=== PATIENT | female | born 1980 | race Caucasian/White ===

== ENCOUNTER 2016-12-14 15:53 | Inpatient (IN) | END 2016-12-17 16:42 | disposition home or self-care (01) | DRG 775 | DX: O24.429 Gestational diabetes mellitus in childbirth, unspecified control (principal); Z37.0 Single live birth; O14.94 Unspecified pre-eclampsia, complicating childbirth; Z3A.39 39 weeks gestation of pregnancy ==

== ENCOUNTER 2018-04-13 05:54 | Day surgery (SDC) | payer OTHER ==
[~2018-04-13] VITALS: Ht 154.9 cm; Wt 68.8 kg
[2018-04-13] VITALS (14 sets, daily range): BP systolic 134–148; BP diastolic 65–83; PULSE 66–78; RESP 14–23; Ht 154.9 cm; Wt 68.8 kg
[2018-04-13] MEDS ORDERED: SEVOFLURANE 15 MIN ONE (07:00)
[2018-04-13] MEDS ORDERED: BUPIVACAINE 0.5%/EPI (SDV) 30 ML INJ ONE (07:12)
--- NOTE | 2018-04-13 07:22 | PREAC ---
Date/Time of Note Date/Time of Note DATE: 04/13/18 TIME: 07:21 Anesthesia Eval and Record Evaluation Time Pre-Procedure Interview DATE: 04/13/18 TIME: 07:21 Age 37 Sex female NPO: 8 hrs Preoperative diagnosis desired sterilization Planned procedure laparoscopic bilateral tubal ligation Past Medical History Past Medical History: None Surgery & Anesthesia Issues No known issue Meds Anticoagulation: No Beta Randa within 24 hr: No Reason Beta Randa not given: Pt. not on B-Randa No Active Prescriptions or Reported Meds Meds reviewed: Yes Allergies Coded Allergies: No Known Allergy (Unverified , 04/13/18) Allergies Reviewed: Yes Labs/Studies Labs Reviewed: Reviewed by anesthesiologist test: Negative Pre-procedure Exam Last vitals Vital Signs Date Temp Pulse Resp B/P (MAP) Pulse Ox O2 O2 Flow FiO2 Time Delivery Rate 04/13/18 98.5 72 18 148/82 99 06:00 (104) Airway: Adequate mouth opening, Adequate thyromental dist Mallampati: Mallampati II Teeth: Normal Lung: Normal Heart: Normal ASA Physical Status ASA physical status: 1 Emergency: None Planned Anesthetic General/MAC: ETT Planned Pain Management Parenteral pain med Pre-operative Attestations Prior to commencing anesthesia and surgery, the patient was re-evaluated, there was verification of: *The patient's identity *The results of appropriate recent lab work and preoperative vital signs *The above evaluation not changing prior to induction *Anesthetic plan, risk benefits, alternative and complications discussed with patient/family; questions answered; patient/family understands, accepts and wishes to proceed. BENSON DIAZ MD Apr 13, 2018 07:22
[2018-04-13] MEDS ORDERED: DIPHENHYDRAMINE 50 MG INJ IV PRN (07:30)
[2018-04-13] MEDS ORDERED: FENTAnyl 50 MCG/ML VIAL IV PRN ×3 (07:30)
[2018-04-13] MEDS ORDERED: MEPERIDINE 25 MG INJ IV PRN (07:30)
[2018-04-13] MEDS ORDERED: HYDROmorphONE 1 MG/5 ML IV SYRINGE IV PRN ×3 (07:30)
[2018-04-13] MEDS ORDERED: PROCHLORPERAZINE 10 MG INJ IV PRN (07:30)
[2018-04-13] MEDS ORDERED: ONDANSETRON 4 MG INJ IV PRN (07:30)
[2018-04-13] MEDS ORDERED: OXYCODONE/ACETAMINOPHEN (5/325) TAB PO PRN (07:30)
[2018-04-13] MEDS ORDERED: PROPOFOL 20 ML ONE (07:34)
[2018-04-13] MEDS ORDERED: MIDAZOLAM 1 MG/ML 2 ML INJ ONE (07:34)
[2018-04-13] MEDS ORDERED: LIDOCAINE 2% (SDV) 5 ML INJ ONE (07:34)
[2018-04-13] MEDS ORDERED: FENTAnyl 50 MCG/ML VIAL ONE (07:41)
[2018-04-13] MEDS ORDERED: CEFAZOLIN 1 GM INJ ONE (07:56)
[2018-04-13] MEDS ORDERED: DEXAMETHASONE 4 MG/ML 5 ML INJ ONE (07:56)
[2018-04-13] MEDS ORDERED: ROCURONIUM 50 MG INJ ONE (07:56)
[2018-04-13] MEDS ORDERED: SUCCINYLCHOLINE CHLORIDE 100 MG/5 ML SYG IV ONE (07:56)
[2018-04-13] MEDS ORDERED: FAMOTIDINE 20 MG INJ ONE (07:56)
[2018-04-13] MEDS ORDERED: ONDANSETRON 4 MG INJ ONE (07:56)
[2018-04-13] MEDS ORDERED: GLYCOPYRROLATE 0.4 MG INJ ONE (08:27)
[2018-04-13] MEDS ORDERED: NEOSTIGMINE 3 MG/3 ML SYRINGE ONE (08:27)
[2018-04-13] MEDS ORDERED: KETOROLAC 30 MG INJ ONE (08:42)
--- NOTE | 2018-04-13 08:49 | OPR ---
Date/Time of Note Date/Time of Note DATE: 04/13/18 TIME: 08:46 Operative Report Procedure Date: Apr 13, 2018 Preoperative Diagnosis Patient desires permanent sterilization. Postoperative Diagnosis Patient desires permanent sterilization. Operation/Procedure Performed Laparoscopic bilateral salpingectomies Surgeon Henry Burgess MD [employer] none Anesthesia Type: general Estimated Blood Loss: 0 - 10 ml's Transfusion none Specimen bilateral distal segments of the tubes Grafts/Implants none Tubes/Drains none Complications none Pt Condition Post Procedure: stable Disposition: PACU Procedure Description FINDINGS: Normal tubes, ovaries bilaterally. Normal uterus. CONSENT: Please see my preop H and P consent in the office for the consent proc ess. DESCRIPTION OF PROCEDURE: She was taken to operating room and general anesthesia was induced. She was prepped and draped in the usual sterile fashion in dorsal lithotomy position. Surgical time-out was done. Anterior lip of the cervix was grasped using a single-tooth tenaculum, and a HUMI was inserted in normal fashion. The tenaculum was removed. There was no bleeding from the cervix. The patient already had a Guerrero catheter as well. Gloves were changed. A 5 mm incision was developed inside the umbilicus. A blunt trocar was inserted in the normal fashion. Intraperitoneal position was confirmed using the laparoscope. Pneumoperitoneum was obtained. The patient was placed in Trendelenburg position. A second trocar was inserted under direct visualization of the laparoscope at the pubic hairline in the midline. A 5 cm mid ampullary region of the right tube was coagulated. Complete desiccation of the entire diameter of tube was visualized. The middle of the coagulated portion was cut. I then proceeded to coagulate and cut the mesosalpinx close to the tube and remove the distal end of the tube. this segment was removed and sent to path. There was no bleeding. Same procedure was done on the contralateral side. All instruments removed under direct visualization of the laparoscope after pneumoperitoneum was released. There was no bleeding. Skin closed using 4-0 Monocryl. Then 10 mL 0.25% Marcaine with epinephrine was injected at the incision sites. HUMI was removed. There was no bleeding from the vagina. Patient tolerated the procedure well. HENRY BURGESS MD Apr 13, 2018 08:49
--- NOTE | 2018-04-13 09:01 | PAC ---
Date/Time of Note Date/Time of Note DATE: 04/13/18 TIME: 09:00 Post-Anesthesia Notes Post-Anesthesia Note Last documented vital signs Vital Signs Date Temp Pulse Resp B/P (MAP) Pulse Ox O2 O2 Flow FiO2 Time Delivery Rate 04/13/18 98.5 72 18 148/82 99 06:00 (104) Activity: WNL Respiratory function: WNL Cardiovascular function: WNL Mental status: Baseline Pain reasonably controlled: Yes Hydration appropriate: Yes Nausea/Vomiting absent: Yes Comments BP: 139/78 HR: 82 RR: 15 T: 98 SaO2: 100% BENSON DIAZ MD Apr 13, 2018 09:01
--- NOTE | 2018-04-13 10:30 | NUR ---
NO BLEEDING NOTED, HOME CARE INSTRUCTIONS GIVEN IN [facility], SEND HOME IN STABLE CONDITION.
== END 2018-04-13 10:30 | disposition home or self-care (01) ==
LOC: SDS 05:54
PROVIDERS: ATTEND Specialist
DX: Z30.2 Encounter for sterilization (principal)
CPT/HCPCS: 58670; J0690; J1100; J1885; J2250; J2405; J2710; J3010; Z7610; 88302